=== PATIENT | male | born 2000 | race Caucasian/White ===

== ENCOUNTER 2021-06-14 18:43 | Observation (INO) ==
[2021-06-14 19:43] LABS: Basophils % 0.7 %; Eosinophils # 0.1 K/mcL (0.0-0.6); Hematocrit 48.4 % (37.5-50.1); Hemoglobin 16.3 g/dL (12.9-16.9); Immature Granulocytes % 0.3 % (0-4); Lymphocytes # 1.3 K/mcL (0.6-4.6); Lymphocytes % 20.9 %; Mean Corpuscular HGB Conc 33.7 g/dL (31.6-35.5); Mean Corpuscular Hemoglobin 28.5 pg (28.0-33.3); Mean Corpuscular Volume 84.8 fL (83.0-100.0); Mean Platelet Volume 9.7 fL (9.4-12.4); Monocytes # 0.7 K/mcL (0.0-1.3); Monocytes % 11.7 %; Neutrophils # 3.9 K/mcL (1.6-8.9); Platelet Count 326 K/mcL (140-400); Red Blood Count 5.71 M/mcL (4.19-5.50); Red Cell Distribution Width 13.4 % (11.5-14.5); Segmented Neutrophils % 64.4 %
[2021-06-14 19:58] LABS: BUN/Creatinine Ratio 12 (6-26); Blood Urea Nitrogen 15 mg/dL (6-20); Calcium 9.1 mg/dL (8.6-10.3); Carbon Dioxide 25 mEq/L (23-29); Chloride 105 mEq/L (98-107); Glucose 95 mg/dL (70-105); Osmolality,Calculated 289 (280-300); Potassium 3.5 mEq/L (3.5-5.1); Sodium 139 mEq/L (136-145); eGFR For African Americans > 60 (> 60); eGFR For Non-African Americans > 60 (> 60)
[2021-06-14 19:59] LABS: Troponin I < 0.03 ng/mL (< 0.04)
[2021-06-14] MEDS ORDERED: *HR* FentaNYL (PF) 100 MCG/2 ML VIAL IVP ONE (20:44)
[2021-06-14] MEDS ORDERED: Aspirin 81 MG TAB.CHEW PO ONE (21:18)
[2021-06-14] MEDS ORDERED: Nitroglycerin 0.4 MG TAB.SUBL SL ONE (21:19)
[2021-06-15] MEDS ORDERED: Perflutren Lipid Microsphere 1.3 ML in 0.9 % Sodium Chloride 8.7 ML IVP PRN (01:05)
[2021-06-15] MEDS ORDERED: Ondansetron 4 MG/2 ML VIAL IVP PRN (01:08)
[2021-06-15] MEDS ORDERED: Acetaminophen 325 MG TABLET PO PRN (01:08)
[2021-06-15] MEDS ORDERED: Naloxone 0.4 MG/ML INJ IVP PRN (01:08)
[2021-06-15 01:42] LABS: Chol/HDL Ratio 3.6 (0-4.9); Cholesterol 133 mg/dL (< 200); Ethanol < 10 mg/dL (Less than 10); HDL Cholesterol 37 mg/dL (40-59); LDL Cholesterol,Calculated 85 mg/dL (< 100); Triglycerides 56 mg/dL (< 150)
[2021-06-15 01:43] LABS: Magnesium 1.9 mg/dL (1.6-2.6)
[2021-06-15 01:57] LABS: Thyroid Stimulating Hormone 4.101 mcIU/mL (0.340-5.600)
[2021-06-15] MEDS ORDERED: Morphine Sulfate 2 MG/ML SYRINGE IVP ONE (02:03)
[2021-06-15] MEDS ORDERED: *HR* Heparin 5,000 UNIT/ML VIAL SQ SCH (06:00)
[2021-06-15 06:11] LABS: INR 1.2; Prothrombin Time 13.5 Seconds (9.4-12.1)
[2021-06-15 06:13] LABS: Activated Partial Thrombo Time 30.6 Seconds (26.0-36.0)
[2021-06-15 06:15] LABS: Hematocrit 49.3 % (37.5-50.1); Hemoglobin 16.2 g/dL (12.9-16.9); Mean Corpuscular HGB Conc 32.9 g/dL (31.6-35.5); Mean Corpuscular Hemoglobin 28.5 pg (28.0-33.3); Mean Corpuscular Volume 86.6 fL (83.0-100.0); Mean Platelet Volume 9.8 fL (9.4-12.4); Platelet Count 329 K/mcL (140-400); Red Blood Count 5.69 M/mcL (4.19-5.50); Red Cell Distribution Width 13.6 % (11.5-14.5); White Blood Count 6.1 K/mcL (4.3-11.1)
[2021-06-15 06:20] LABS: Troponin I 0.36 ng/mL (< 0.04)
[2021-06-15] MEDS ORDERED: Regadenoson 0.4 MG/5 ML SYRINGE IVP ONE (06:20)
[2021-06-15] MEDS ORDERED: *HR* Heparin 5,000 UNIT/ML VIAL IVP ONE (06:50)
[2021-06-15] MEDS ORDERED: *HR* Heparin 5,000 UNIT/ML VIAL IVP PRN ×2 (06:50)
[2021-06-15] MEDS ORDERED: Heparin 25,000UNIT/250ML 1/2NS 25,000 UNIT/250 ML IV.SOLN IVC SCH (07:00)
[2021-06-15] MEDS ORDERED: carvediloL 6.25 MG TABLET PO SCH ×2 (08:15→17:00)
[2021-06-15] MEDS ORDERED: Aspirin Enteric Coated 81 MG Tablet PO SCH (09:00)
[2021-06-15 09:23] LABS: BUN/Creatinine Ratio 10 (6-26); Blood Urea Nitrogen 13 mg/dL (6-20); Calcium 9.2 mg/dL (8.6-10.3); Carbon Dioxide 23 mEq/L (23-29); Chloride 106 mEq/L (98-107); Glucose 83 mg/dL (70-105); Osmolality,Calculated 285 (280-300); Potassium 4.1 mEq/L (3.5-5.1); Sodium 138 mEq/L (136-145); eGFR For African Americans > 60 (> 60); eGFR For Non-African Americans > 60 (> 60)
[2021-06-15] MEDS ORDERED: *HR* LORazepam 2 MG/ML VIAL IVP ONE (10:34)
[2021-06-15] MEDS ORDERED: *HR* Midazolam HCl 5 MG/5 ML VIAL IVP ONE (13:40)
[2021-06-15] MEDS ORDERED: *HR* FentaNYL (PF) 100 MCG/2 ML VIAL ONE (13:40)
[2021-06-15] MEDS ORDERED: ISOVUE-370 200 ML INFUS..BTL ONE (13:41)
[2021-06-15] MEDS ORDERED: 0.9 % Sodium Chloride 1,000 ML ONE (13:41)
[2021-06-15] MEDS ORDERED: Nitroglycerin 1,000 MCG/5 ML VIAL IV ONE (13:41)
[2021-06-15] MEDS ORDERED: Heparin 1,000 UNITS/500 mL 500 ML ONE (13:41)
[2021-06-15] MEDS ORDERED: *HR* Heparin 10,000 UNIT/10 ML VIAL ONE (13:41)
[2021-06-15 15:19] VITALS: TEMP 98.2
[2021-06-15 15:35] VITALS: BP 173/90; PULSE 98; O2SAT 92
== END 2021-06-15 18:28 | disposition home or self-care (01) ==
LOC: EMEROOARM 18:43 → 3BNU 18:43
PROVIDERS: ADMIT Student in an Organized Health Care Education/Training Program; ATTEND Student in an Organized Health Care Education/Training Program